=== PATIENT | male | born 2000 | race African-American/Black ===

== ENCOUNTER 2022-04-23 09:10 | Emergency (ER) | payer SELFPAY ==
--- NOTE | 2022-04-23 09:55 | RAD REPORT ---
EXAM DESCRIPTION: RAD - Hand Left 3 View - 04/23/2022 9:50 am CLINICAL HISTORY: PAIN COMPARISON: No comparisons FINDINGS: Mildly angulated fracture of the distal shaft of the fifth metacarpal. Mild adjacent soft tissue swelling and debris is present.
--- NOTE | 2022-04-23 10:23 | ER ---
Nurse's Notes [facility] Name: Abram Chicas Age: 21 yrs Sex: Male : 2000 Arrival Date: 04/23/2022 Time: 09:11 Bed 14 Private MD: Diagnosis: Left fifth metacarpal fracture, closed Presentation: 04/23 09:18 Chief complaint: Patient states: Punched a pole with L hand yesterday. Pain and ll1 swelling since. Coronavirus screen: Vaccine status: Patient reports being unvaccinated. Client denies travel out of the [place] in the last 14 days. At this time, the client does not indicate any symptoms associated with coronavirus-19. Ebola Screen: Patient denies travel to an Ebola-affected area in the 21 days before illness onset. Initial Sepsis Screen: Does the patient meet any 2 criteria? No. Patient's initial sepsis screen is negative. Does the patient have a suspected source of infection? Yes: Bone or joint infection. Risk Assessment: Do you want to hurt yourself or someone else? Patient reports no desire to harm self or others. Onset of symptoms was April 22, 2022. 09:18 Method Of Arrival: Ambulatory ll1 09:18 Acuity: JUAN 4 ll1 Triage Assessment: 09:19 General: Appears uncomfortable, Behavior is calm, cooperative, appropriate for age. ll1 Pain: Complains of pain in left hand Pain currently is 5 out of 10 on a pain scale. Quality of pain is described as aching. Musculoskeletal: Circulation, motion, and sensation intact. Capillary refill < 3 seconds, Swelling present in left hand Reports pain in left hand. Injury Description: Bruise Deformity. Historical: - Allergies: 09:18 No Known Allergies; ll1 - PMHx: 09:18 None; ll1 - PSHx: 09:18 None; ll1 - Immunization history:: Client reports having NOT received the Covid vaccine. - Social history:: Smoking status: Patient denies any tobacco usage or history of. Screenin: [facility] ED Fall Risk Assessment (Adult) History of falling in the last 3 months, ko1 including since admission No falls in past 3 months (0 pts) Confusion or Disorientation No (0 pts) Intoxicated or Sedated No (0 pts) Impaired Gait No (0 pts) Mobility Assist Device Used No (0 pt) Altered Elimination No (0 pt) Score/Fall Risk Level 0 - 2 = Low Risk Oriented to surroundings, Maintained a safe environment, Educated pt \T\ family on fall prevention, incl call for assistance when getting out of bed, Assessed \T\ reinforced patient's understanding of fall precautions, Provided non-skid footwear, Hourly rounding (assess needs \T\ fall precautionary measures) done, Used ambulatory aids as needed (educated on \T\ assisted with), Used gait belt as appropriate. Abuse screen: Denies threats or abuse. Denies injuries from another. Nutritional screening: No deficits noted. Tuberculosis screening: No symptoms or risk factors identified. Assessment: 09:22 General: Appears in no apparent distress. comfortable, Behavior is calm, cooperative, ko1 appropriate for age. Pain: Complains of pain in left hand. Neuro: No deficits noted. Cardiovascular: No deficits noted. Respiratory: No deficits noted. GI: No deficits noted. : No deficits noted. EENT: No deficits noted. Derm: No deficits noted. Musculoskeletal: Reports pain in left hand. Injury Description: Bruise sustained to left hand. Vital Signs: 09:18 BP 124 / 90; Pulse 110; Resp 16; Temp 98.0; Pulse Ox 98% on R/A; Weight 77.11 kg; ll1 Height 6 ft. 3 in. (190.50 cm); Pain 5/10; 09:41 BP 105 / 82; Pulse 99; Pulse Ox 97% on R/A; ko1 09:18 Body Mass Index 21.25 (77.11 kg, 190.50 cm) ll1 ED Course: 09:11 Patient arrived in ED. mr 09:12 Phill Clemons PA is PHCP. jmm 09:12 Jermaine Boateng MD is Attending Physician. jmm 09:18 Arm band placed on Patient placed in an exam room, on a stretcher. ll1 09:19 Triage completed. ll1 09:22 Brooklynn Nice, NICO is Primary Nurse. ko1 09:22 Awaiting for x-ray. ko1 09:22 Patient has correct armband on for positive identification. Bed in low position. Call ko1 light in reach. Pulse ox on. NIBP on. 10:22 Felipe Lovell MD is Referral Physician. jmm 10:25 Orthoglass splint: Ulnar gutter/Boxer splint applied on left forearm. mm9 10:28 Assist provider with fracture care Post immobilization, circulation, motor and ko1 sensation remain intact. Patient did not have IV access during this emergency room visit. Administered Medications: No medications were administered Medication: 09:22 VIS not applicable for this client. ko1 Outcome: 10:23 Discharge ordered by . nadiya 10:28 Discharged to home ambulatory. ko1 10:28 Condition: stable 10:28 Discharge instructions given to patient, Instructed on discharge instructions, follow up and referral plans. medication usage, follow up ortho Demonstrated understanding of instructions, follow-up care, splint care, Prescriptions given X 1. 10:32 Patient left the ED. ko1 Signatures: Phill Clemons PA PA jmm Rivera, Mary mr Lewis, Lynsay, RN RN ll1 Brooklynn Nice, NICO RN [email or web address] Jazmyne Berry mm9
--- NOTE | 2022-04-23 10:23 | EDPHYS ---
Physician Documentation [facility] Name: Abram Chicas Age: 21 yrs Sex: Male : 2000 Arrival Date: 04/23/2022 Time: 09:11 Bed 14 Private MD: ED Physician Jermaine Boateng HPI: 04/23 09:15 This 21 yrs old Black Male presents to ER via Ambulatory with complaints of Hand Injury.jmm 09:15 The patient or guardian reports injury, pain. Onset: The symptoms/episode jmm began/occurred acutely. Modifying factors: The symptoms are alleviated by nothing, the symptoms are aggravated by nothing. Associated signs and symptoms: Pertinent positives: Swelling. Is a 21-year-old male who presents emerged department with complaints of left hand swelling after punching an object. Patient injured himself yesterday around noon. Denies other injury.. Historical: - Allergies: 09:18 No Known Allergies; ll1 - PMHx: 09:18 None; ll1 - PSHx: 09:18 None; ll1 - Immunization history:: Client reports having NOT received the Covid vaccine. - Social history:: Smoking status: Patient denies any tobacco usage or history of. ROS: 09:15 Constitutional: Negative for fever, chills, and weight loss, Cardiovascular: Negative jmm for chest pain, palpitations, and edema, Respiratory: Negative for shortness of breath, cough, wheezing, and pleuritic chest pain. 09:15 MS/extremity: Positive for injury or acute deformity, pain, swelling. 09:15 All other systems are negative. Exam: 09:15 Constitutional: This is a well developed, well nourished patient who is awake, alert, jmm and in no acute distress. Head/Face: atraumatic. Eyes: EOMI, no conjunctival erythema appreciated ENT: Moist Mucus Membranes Neck: Trachea midline, Supple Chest/axilla: Normal chest wall appearance and motion. Cardiovascular: Regular rate and rhythm. No edema appreciated Respiratory: Normal respirations, no respiratory distress appreciated Abdomen/GI: Non distended Back: Normal ROM Skin: General appearance color normal 09:15 Musculoskeletal/extremity: Swelling noted to the left hand, full radial pulse, compartments are soft, less than 2-second distal cap refill, neurovascular tact. 09:15 Skin: Appearance: Color: normal in color. 09:15 Neuro: Motor: is normal. Vital Signs: 09:18 BP 124 / 90; Pulse 110; Resp 16; Temp 98.0; Pulse Ox 98% on R/A; Weight 77.11 kg; ll1 Height 6 ft. 3 in. (190.50 cm); Pain 5/10; 09:41 BP 105 / 82; Pulse 99; Pulse Ox 97% on R/A; ko1 09:18 Body Mass Index 21.25 (77.11 kg, 190.50 cm) ll1 MDM: 09:15 Patient medically screened. [facility] 10:21 Data reviewed: vital signs, nurses notes. Independent interpretation of the following [facility] test(s) in the Emergency Department X-Ray: My interpretation is Left fifth metacarpal fracture. Counseling: I had a detailed discussion with the patient and/or guardian regarding: the historical points, exam findings, and any diagnostic results supporting the discharge/admit diagnosis, radiology results, the need for outpatient follow up, to return to the emergency department if symptoms worsen or persist or if there are any questions or concerns that arise at home. 04/23 09:20 Order name: Hand Left 3 View XRAY [facility] 04/23 09:56 Order name: RAD; Complete Time: 09:58 EDMT 04/23 09:58 Order name: Ulnar Gutter splint; Complete Time: 10:16 jm Administered Medications: No medications were administered Disposition Summary: 04/23/22 10:23 Discharge Ordered Location: Home [facility] Condition: Stable [facility] Diagnosis - Left fifth metacarpal fracture, closed [facility] Followup: [facility] - With: Felipe Lovell MD - When: 2 - 3 days - Reason: Recheck today's complaints, Continuance of care, Re-evaluation by your physician Discharge Instructions: - Discharge Summary Sheet [facility] - Boxer's Fracture [facility] Forms: - Medication Reconciliation Form [facility] - Thank You Letter [facility] - Antibiotic Education [facility] - Prescription Opioid Use [facility] Prescriptions: - Diclofenac Sodium 75 mg Oral Tablet Sustained Release - take 1 tablet by ORAL route 2 times per day; 30 tablet; Refills: 0, Product [facility] Selection Permitted Signatures: Dispatcher [employer] EDMS Kilo, Jermaine, MD MD yoselin Mickail, Phill, PA PA jmm Lawrence, Lynsay, RN RN ll1
[2022-04-23 10:43] VITALS: TEMP 98
[2022-04-23 10:44] VITALS: BP 105/82; O2SAT 97
== END 2022-04-23 10:32 | disposition home or self-care (01) ==
LOC: ER 09:10
PROC: 2W3FX1Z Immobilization of Left Hand using Splint (ICD-10-PCS; principal; 2022-04-23)
DX: S62.307A Unspecified fracture of fifth metacarpal bone, left hand, initial encounter for closed fracture (principal)
CPT/HCPCS: 99284